=== PATIENT | female | born 1975 | race Caucasian/White ===

== ENCOUNTER 2016-10-09 20:45 | Emergency (ER) | payer OTHER ==
[2016-10-09 20:52] VITALS: BP 140/80; PULSE 68; TEMP 98.1; BMI 30.9
[2016-10-09] MEDS ORDERED: CYCLOBENZAPRINE HCL 10 MG TABLET (FP) PO ONE (21:29)
--- NOTE | 2016-10-09 22:05 | PDOC ---
History of Present Illness - General Chief Complaint: Back Pain Stated Complaint: PAIN Time Seen by Provider: 10/09/16 21:28 History Source: Patient Exam Limitations: No Limitations - History of Present Illness Initial Comments: 10/09/16 22:06 41-year-old female presents to the emergency department complaining of lower back pain 13 months. Pain is described as 6/10 dull nonradiating intermittent discomfort without nausea/vomiting, fever/chills/diarrhea, headaches, dizziness , lightheadedness, neck pains, chest pain, shortness of breath, abdominal pains , urinary symptoms: Frequency/urgency/hesitancy, burning upon urination or hematuria. Patient denies bladder or bowel dysfunction, extremity numbness or tingling sensation. Patient states she's had MRIs and numerous consultations during this 13 month but every consulting professional tells her that or her exams are within normal limits. Occurred: reports: other (13 months) Pain Location: reports: back (lower) Past History - Travel Traveled outside of the country in the last 30 days: No Close contact w/someone who was outside of country & ill: No - Past Medical History Allergies/Adverse Reactions: Allergies Allergy/AdvReac Type Severity Reaction Status Date / Time No Known Allergies Allergy Verified 10/09/16 20:52 Home Medications: Ambulatory Orders NK [No Known Home Medication] 10/09/16 - Psycho/Social/Smoking Cessation Hx Suicidal Ideation: No Smoking History: Never smoked Have you smoked in the past 12 months: No Information on smoking cessation initiated: No Hx Alcohol Use: No Drug/Substance Use Hx: No Review of Systems - Review of Systems Able to Perform ROS?: Yes Comments:: 10/09/16 22:05 CONSTITUTIONAL: Absent: fever, chills, diaphoresis, generalized weakness, malaise, loss of appetite HEENT: Absent: rhinorrhea, nasal congestion, throat pain, throat swelling, difficulty swallowing, mouth swelling, ear pain, eye pain, visual Changes CARDIOVASCULAR: Absent: chest pain, loss of consciousness, palpitations, irregular heart rate, peripheral edema RESPIRATORY: Absent: cough, shortness of breath, dyspnea with exertion, orthopnea, wheezing, stridor, hemoptysis GASTROINTESTINAL: Absent: abdominal pain, abdominal distension, nausea, vomiting, diarrhea, constipation, melena, hematochezia GENITOURINARY: Absent: dysuria, frequency, urgency, hesitancy, hematuria, flank pain, genital pain MUSCULOSKELETAL: : LBP Absent: myalgia, arthralgia, joint swelling SKIN: Absent: rash, itching, pallor HEMATOLOGIC/IMMUNOLOGIC: Absent: easy bleeding, easy bruising, lymphadenopathy, frequent infections ENDOCRINE: Absent: unexplained weight gain, unexplained weight loss, heat intolerance, cold intolerance NEUROLOGIC: Absent: headache, focal weakness or paresthesias, dizziness, unsteady gait, seizure, mental status changes, bladder or bowel incontinence PSYCHIATRIC: Absent: anxiety, depression, suicidal or homicidal ideation, hallucinations. Is the patient limited Japanese proficient: No *Physical Exam - Vital Signs Last Vital Signs Temp Pulse Resp BP Pulse Ox 98.1 F 68 18 140/80 100 10/09/16 20:48 10/09/16 20:48 10/09/16 20:48 10/09/16 20:48 10/09/16 20:48 - Physical Exam Comments: 10/09/16 22:05 GENERAL: Well developed, well nourished. Awake and alert. No acute distress. HEENT: Normocephalic, atraumatic. PERRLA, EOMI. No conjunctival pallor. Sclera are non- icteric. Moist mucous membranes. Oropharynx is clear. NECK: Supple. Full ROM. No JVD. Carotid pulses 2+ and symmetric, without bruits. No thyromegaly. No lymphadenopathy. CARDIOVASCULAR: Regular rate and rhythm. No murmurs, rubs, or gallops. Distal pulses are 2+ and symmetric. PULMONARY: No evidence of respiratory distress. Lungs clear to auscultation bilaterally. No wheezing, rales or rhonchi. ABDOMINAL: Soft. Non-tender. Non-distended. No rebound or guarding. No organomegaly. Normoactive bowel sounds. MUSCULOSKELETAL Normal range of motion at all joints. No bony deformities or tenderness. No CVA tenderness. EXTREMITIES: No cyanosis. No clubbing. No edema. No calf tenderness. SKIN: Warm and dry. Normal capillary refill. No rashes. No jaundice. NEUROLOGICAL: Alert, awake, appropriate. Cranial nerves 2-12 intact. No deficits to light touch and temperature in face, upper extremities and lower extremities. No motor deficits in the in face, upper extremities and lower extremities. Normoreflexic in the upper and lower extremities. Normal speech. Toes are down- going bilaterally. Gait is normal without ataxia. PSYCHIATRIC: Cooperative. Good eye contact. Appropriate mood and affect. Neg SLR heel/toe/tandem walk intact Deep knee bend intact Progress Note - Progress Note Progress Note: XR; lumbar/sacral spine: neg *DC/Admit/Observation/Transfer Diagnosis at time of Disposition: Chronic lower back pain Qualifiers: Back pain laterality: bilateral Sciatica presence: without sciatica Qualified Code(s): M54.5 - Low back pain - Discharge Dispostion Disposition: HOME Condition at time of disposition: Stable Admit: No - Referrals Referrals: STAFF,NOT ON [Primary Care Provider] - Aleksandr Clifton MD [Staff Physician] - - Patient Instructions Printed Discharge Instructions: Managing Chronic Low Back Pain Additional Instructions: REst Avoid heavy lifting Follow up with neurology listed on your discharge Return to the ER for severe/persistent/worsening symptoms, bladder or bowel dysfunction - Post Discharge Activity Work/School Note: Back to Work
[2016-10-09 22:15] LABS: URINE APPEARANCE CLEAR; URINE BILIRUBIN NEGATIVE (NEGATIVE); URINE BLOOD NEGATIVE (NEGATIVE); URINE COLOR LTYELLOW; URINE GLUCOSE (UA) NEGATIVE (NEGATIVE); URINE KETONE NEGATIVE (NEGATIVE); URINE LEUK ESTERASE NEGATIVE (NEGATIVE); URINE NITRITE NEGATIVE (NEGATIVE); URINE PROTEIN NEGATIVE (NEGATIVE); URINE UROBILINOGEN NEGATIVE E.U./dl (0.2-1.0)
[2016-10-09] MEDS ORDERED: CYCLOBENZAPRINE HCL 10 MG TABLET (FP) ONE (22:15)
== END 2016-10-09 22:41 | disposition home or self-care (01) ==
LOC: JERFT 20:45
DX: M54.5 Low back pain (principal)
CPT/HCPCS: 72100-TC; 81003; 84703; 99281-25

== ENCOUNTER 2017-04-16 19:30 | Emergency (ER) | payer OTHER ==
--- NOTE | 2017-04-16 20:38 | PDOC ---
Attending Attestation - Resident Resident Name: Kyle Campos - ED Attending Attestation I have performed the following: I have examined & evaluated the patient, The case was reviewed & discussed with the resident, I agree w/resident's findings & plan, Exceptions are as noted - HPI HPI: 04/16/17 23:58 41-year-old patient with no significant past medical history presents with a urine of intermittent left upper quadrant pain. She reports the pain is sharp and sometimes burning. She doesn't note any triggers for the pain and reports it 's not better or worse with food. She has been taking fiber supplements as she spells her abdomen is full but no other treatments tried. She reports that she saw her primary doctor 7 months ago for this and was referred to a medical records administrator but was unable to follow-up at the appointment. She presents today because she feels she cannot take the pain anymore. Denies any associated symptoms of nausea, vomiting, diarrhea, chest pain, shortness of breath, diaphoresis, headache, weakness or numbness. Denies vaginal discharge or bleeding. No dark or blood stools. - Physicial Exam PE: 04/17/17 00:03 GENERAL: Awake, alert, and fully oriented, in no acute distress HEAD: No signs of trauma EYES: PERRLA, EOMI, sclera anicteric, conjunctiva clear ENT: Auricles normal inspection, hearing grossly normal, nares patent, oropharynx clear without exudates. Moist mucosa NECK: Normal ROM, supple, no lymphadenopathy, JVD, or masses LUNGS: Breath sounds equal, clear to auscultation bilaterally. No wheezes, and no crackles HEART: Regular rate and rhythm, normal S1 and S2, no murmurs, rubs or gallops ABDOMEN: Soft, nontender, normoactive bowel sounds. No guarding, no rebound. No masses EXTREMITIES: Normal range of motion, no edema. No clubbing or cyanosis. No cords, erythema, or tenderness NEUROLOGICAL: Normal speech, cranial nerves intact, negative pronator drift, 5/ 5 strength in all 4 extremities, normal sensation to light touch in all 4 extremities, normal cerebellar exam, normal gait, normal reflexes and tone SKIN: Warm, Dry, normal turgor, no rashes or lesions noted. - Medical Decision Making 04/17/17 23:03 41-year-old female with no significant past medical history who presents with a urinary off of left upper quadrant pain vitals are unremarkable. Exam completely unremarkable with no tenderness to palpation in the abdomen. Likely gastritis. Will check labs including a lipase to rule out pancreatitis. -labs -UA -UPT -pain control -reassess 04/17/17 00:05 UPT negative. Labs unremarkable. Patient reports improvement in pain after GI cocktail. Likely gastritis. Will discharge patient to follow-up with primary doctor and GI doctor. I discussed the physical exam findings, ancillary test results and final diagnoses with the patient. I answered all of the patient's questions. The patient was satisfied with the care received and felt comfortable with the discharge plan and treatment plan. The patient will call their primary care physician within 24 hours to arrange follow-up and will return to the Emergency Department with any new, persistent or worsening symptoms.
[2017-04-16 20:40] VITALS: BP 133/86; PULSE 68; TEMP 98.3; BMI 29.9
[2017-04-16] MEDS ORDERED: FAMOTIDINE 20 MG/50 ML IVPB 20 MG/50 ML MG IVPB ONE (20:43)
[2017-04-16] MEDS ORDERED: SODIUM CHLORIDE 1,000 ML IV STA (20:43)
[2017-04-16] MEDS ORDERED: MAG HYDROX/AL HYDROX/SIMETH 30 ML UNIT-DOSE CUP PO ONE (20:44)
--- NOTE | 2017-04-16 21:28 | PDOC ---
History of Present Illness - General Chief Complaint: Pain Stated Complaint: STOMACH PAIN Time Seen by Provider: 04/16/17 20:27 History Source: Patient Exam Limitations: No Limitations - History of Present Illness Initial Comments: 04/16/17 21:20 Patient is a 41F with no significant medical history here today complaining of abdominal pain for the past 1.5 years. She says the pain is located in the upper left quadrant and describes the pain as a burning and stabbing sensation. She denies waxing and waning of her pain, stating that it's always there. She states that she feels like there are spiderwebs inside of her. Patient has seen her PCP for this condition, who referred her to a GI specialist last June. She missed that appointment and never followed up again. She denies associated nausea, vomiting, fevers, and chills. She denies anything that makes her pain better or worse, including movement, eating, and inspiration. She denies any trauma. She denies diarrhea, constipation, pain with urination, incontinence and frequency. Denies smoking, etoh and illicits. PCP: Juan M Past History - Past Medical History Allergies/Adverse Reactions: Allergies Allergy/AdvReac Type Severity Reaction Status Date / Time No Known Allergies Allergy Verified 04/16/17 20:38 Home Medications: Ambulatory Orders Famotidine [Pepcid] 20 mg PO BID #28 tablet 04/16/17 - Suicide/Smoking/Psychosocial Hx Smoking History: Never smoked Have you smoked in the past 12 months: No Information on smoking cessation initiated: No Hx Alcohol Use: No Drug/Substance Use Hx: No Review of Systems - Review of Systems Comments:: 04/16/17 21:28 GENERAL/CONSTITUTIONAL: No fever or chills. No weakness. HEAD, EYES, EARS, NOSE AND THROAT: No change in vision. No ear pain or discharge. No sore throat. CARDIOVASCULAR: No chest pain or shortness of breath RESPIRATORY: No cough, wheezing, or hemoptysis. GASTROINTESTINAL: No nausea, vomiting, diarrhea or constipation. GENITOURINARY: No dysuria, frequency, or change in urination. MUSCULOSKELETAL: No joint or muscle swelling or pain. No neck or back pain. SKIN: No rash NEUROLOGIC: No headache, vertigo, loss of consciousness, or change in strength/ sensation. ENDOCRINE: No increased thirst. No abnormal weight change HEMATOLOGIC/LYMPHATIC: No anemia, easy bleeding, or history of blood clots. ALLERGIC/IMMUNOLOGIC: No hives or skin allergy. *Physical Exam - Vital Signs Last Vital Signs Temp Pulse Resp BP Pulse Ox 98.3 F 68 14 133/86 100 04/16/17 20:38 04/16/17 20:38 04/16/17 20:38 04/16/17 20:38 04/16/17 20:38 - Physical Exam Comments: 04/16/17 21:29 GENERAL: Awake, alert, and fully oriented, in no acute distress HEAD: No signs of trauma, normocephalic, atraumatic EYES: PERRLA, EOMI, sclera anicteric, conjunctiva clear ENT: Auricles normal inspection, hearing grossly normal, nares patent, oropharynx clear without exudates. Moist mucosa NECK: Normal ROM, supple, no lymphadenopathy, JVD, or masses LUNGS: No distress, speaks full sentences, clear to auscultation bilaterally HEART: Regular rate and rhythm, normal S1 and S2, no murmurs, rubs or gallops, peripheral pulses normal and equal bilaterally. ABDOMEN: Soft, mildly tender in upper left quadrant, normoactive bowel sounds. No guarding, no rebound. No masses EXTREMITIES: Normal inspection, Normal range of motion, no edema. No clubbing or cyanosis. NEUROLOGICAL: Cranial nerves II through XII grossly intact. Normal speech, normal gait, no focal sensorimotor deficits SKIN: Warm, Dry, normal turgor, no rashes or lesions noted. ED Treatment Course - LABORATORY CBC & Chemistry Diagram: 04/16/17 22:00 04/16/17 22:00 Medical Decision Making - Medical Decision Making 04/16/17 21:29 Patient is a 41F with no significant medical history here today with left upper quadrant abdominal pain. Vital signs stable and normal. Patient exam reassuring. Patient is walking around the room comfortably. Differential diagnosis includes, but is not limited to: gastritis, ulcer, pancreatitis. Will evaluate with abdominal labs, upreg. Will treat with maalox, pepcid and fluid. 04/16/17 23:23 Laboratory Tests 04/16/17 04/16/17 04/16/17 22:00 22:00 22:18 WBC 7.2 Hgb 12.9 Hct 38.8 Plt Count 320 BUN 7 Creatinine 0.7 AST 14 L ALT 21 Lipase 111 Urine Blood Negative Urine Nitrite Negative Urine HCG, Qual 04/16/17 22:18 WBC Hgb Hct Plt Count BUN Creatinine AST ALT Lipase Urine Blood Urine Nitrite Urine HCG, Qual Negative CBC normal. CMP shows normal kidney and liver function. Lipase neg. Upreg neg. UA clear. Will discharge with GI and PCP follow up. Patient improved, alert, and ambulatory at discharge. *DC/Admit/Observation/Transfer Diagnosis at time of Disposition: Abdominal pain - Discharge Dispostion Disposition: HOME Condition at time of disposition: Good Admit: No - Prescriptions Prescriptions: Famotidine [Pepcid] 20 mg PO BID #28 tablet - Referrals Referrals: Rock Mcgowan MD [Primary Care Provider] - Arjun Darling MD [Staff Physician] - - Patient Instructions Printed Discharge Instructions: DI for Abdominal Pain-Adult Additional Instructions: Please follow up with your primary care physician in the next 7 days. Please call to make an appointment with the GI specialist tomorrow morning. Please return if you have any new, worsening or concerning symptoms. -Dr Campos - Post Discharge Activity
[2017-04-16] MEDS ORDERED: MAG HYDROX/AL HYDROX/SIMETH 30 ML UNIT-DOSE CUP ONE (21:38)
[2017-04-16 22:10] LABS: BASOPHIL 0.7 % (0-2.0); EOSINOPHIL 1.5 % (0-4.5); MCH 29.5 pg (25.7-33.7); MCHC 33.3 g/dl (32.0-36.0); MEAN CELL VOLUME 88.6 fl (80-96); MEAN PLT VOLUME 7.7 fl (7.5-11.1); NEUTROPHILS 65.2 % (42.8-82.8); PLATELET COUNT 320 K/MM3 (134-434); RDW 13.8 % (11.6-15.6); WHITE BLOOD COUNT 7.2 K/mm3 (4.0-10.0)
[2017-04-16 22:34] LABS: URINE APPEARANCE SLCLOUDY; URINE BILIRUBIN NEGATIVE (NEGATIVE); URINE BLOOD NEGATIVE (NEGATIVE); URINE COLOR YELLOW; URINE GLUCOSE (UA) NEGATIVE (NEGATIVE); URINE KETONE NEGATIVE (NEGATIVE); URINE NITRITE NEGATIVE (NEGATIVE); URINE PROTEIN NEGATIVE (NEGATIVE); URINE UROBILINOGEN NEGATIVE mg/dL (0.2-1.0)
[2017-04-16 22:40] LABS: ALBUMIN 3.8 g/dl (3.4-5.0); ANION GAP 7 (8-16); BILIRUBIN,TOTAL 0.3 mg/dL (0.2-1.0); CALCIUM 8.8 mg/dL (8.5-10.1); CO2 29 mmol/L (21-32); CREATININE 0.7 mg/dL (0.55-1.02); GLUCOSE,RANDOM 84 mg/dL (74-106); SGOT/AST 14 U/L (15-37); SGPT/ALT 21 U/L (12-78); TOT PROT 7.2 g/dl (6.4-8.2)
[2017-04-16 22:41] LABS: ALK PHOS 62 U/L (45-117)
[2017-04-17 17:46] LABS: URINE LEUK ESTERASE Negative (NEGATIVE)
== END 2017-04-17 01:14 | disposition home or self-care (01) ==
LOC: JER 19:30
PROC: 3E033GC Introduction of Other Therapeutic Substance into Peripheral Vein, Percutaneous Approach (ICD-10-PCS; principal; 2017-04-16)
DX: R10.84 Generalized abdominal pain (principal)
CPT/HCPCS: 36415; 80053; 81003; 83690; 84703; 85025; 99281-25

== ENCOUNTER 2017-04-30 08:11 | Day surgery (SDC) | payer OTHER ==
[2017-04-30] MEDS ORDERED: LIDOCAINE HCL/PF 2% SDV 5ML VIAL ONE (08:50)
[2017-04-30] MEDS ORDERED: PROPOFOL 20 ML ONE ×2 (08:50)
[2017-04-30 08:55] VITALS: BMI 31.2
[2017-04-30 10:10] VITALS: TEMP 98.4
[2017-04-30 10:31] VITALS: PULSE 60
--- NOTE | 2017-04-30 12:31 | PROC ---
Endoscopy Procedure Endoscopy procedure completed. Please see scanned procedure report.
[2017-04-30 14:56] VITALS: BP 112/69
--- NOTE | 2017-05-01 11:46 | PATH ---
Surgical Pathology Report Patient Name: ROBIN ESPARZA [facility] Rec. #: [id number] /Age/Gender: 1975 (Age: 41) / F Account: [id number] Location: [facility]-ENDOSCOPY Taken: 04/30/2017 Received: 04/30/2017 Reported: 05/01/2017 Physicians: Arjun Darling M.D. Specimen(s) Received A: BX SECOND PORTION DUODENUM B: BX ANTRUM/BODY C: BX GASTRO-ESOPHAGEAL JUNCTION D: BX TERMINAL ILEUM E: ASCENDING COLON POLYP F: BX DESCENDING COLON Clinical History Preoperative diagnosis: Abdominal pain Postoperative diagnosis: Same Final Diagnosis A. DUODENUM, SECOND PORTION, BIOPSY: DUODENAL MUCOSA WITH NO PATHOLOGIC CHANGES. NO HISTOLOGIC EVIDENCE OF GLUTEN SENSITIVE ENTEROPATHY (CELIAC SPRUE) IDENTIFIED. B. STOMACH, ANTRUM AND BODY, BIOPSY: SEVERE CHRONIC ACTIVE GASTRITIS. IMMUNOSTAIN FOR H. PYLORI IS POSITIVE (MANY ORGANISMS). C. GE JUNCTION, BIOPSY: SQUAMOUS AND GASTRIC MUCOSA WITH ACUTE AND CHRONIC INFLAMMATION, WITH PAPILLOMATOSIS AND INTRAEPITHELIAL EOSINOPHILS CONSISTENT WITH REFLUX ESOPHAGITIS. NO INTESTINAL METAPLASIA IDENTIFIED (NO GEORGE'S IDENTIFIED). D. TERMINAL ILEUM, BIOPSY: SMALL INTESTINAL MUCOSA WITH REACTIVE FOLLICULAR HYPERPLASIA OF MUCOSA ASSOCIATED LYMPHOID TISSUE. NO ACTIVE INFLAMMATION, GRANULOMATA, OR DYSPLASIA IDENTIFIED. E. COLON, ASCENDING, BIOPSY: COLONIC MUCOSA WITH NO PATHOLOGIC CHANGES. NO ACTIVE COLITIS, ARCHITECTURAL DISTORTION, GRANULOMATA, OR DYSPLASIA IDENTIFIED. NO MICROSCOPIC COLITIS IDENTIFIED (NO LYMPHOCYTIC OR COLLAGENOUS COLITIS IDENTIFIED). F. COLON, DESCENDING, BIOPSY: COLONIC MUCOSA WITH NO PATHOLOGIC CHANGES. NO ACTIVE COLITIS, ARCHITECTURAL DISTORTION, GRANULOMATA, OR DYSPLASIA IDENTIFIED. NO MICROSCOPIC COLITIS IDENTIFIED (NO LYMPHOCYTIC OR COLLAGENOUS COLITIS IDENTIFIED). Comment: The findings in Specimen F may indicate some form of antigenic stimulation to the GI tract. Electronically Signed Edgar Santos M.D. Gross Description A. Received in formalin, labeled "biopsy second portion of duodenum" is a jones, irregular portion of soft tissue measuring 0.4 cm. in greatest dimension. The specimen is submitted in toto in one cassette. B. Received in formalin, labeled "biopsy antrum/body" are 3 jones, irregular portions of soft tissue ranging from 0.2-0.6 cm. in greatest dimension. The specimens are submitted in toto in one cassette. C. Received in formalin, labeled "biopsy gastroesophageal junction" are 3 jones, irregular portions of soft tissue averaging 0.2 cm. in greatest dimension. The specimens are submitted in toto in one cassette. D. Received in formalin, labeled "biopsy terminal ileum" are 2 jones, irregular portions of soft tissue averaging 0.3 cm. in greatest dimension. The specimens are submitted in toto in one cassette. E. Received in formalin, labeled "biopsy ascending colon" is a jones, irregular portion of soft tissue measuring 0.6 cm. in greatest dimension. The specimen is submitted in toto in one cassette. F. Received in formalin, labeled "biopsy descending colon" are 2 jones, irregular portions of soft tissue averaging 0.2 cm. in greatest dimension. The specimens are submitted in toto in one cassette. 04/30/2017 [facility]30/2017
== END 2017-04-30 12:00 | disposition home or self-care (01) ==
LOC: JASU-ENDO 08:11
PROVIDERS: ATTEND Internal Medicine Gastroenterology
PROC: 0DB68ZX Excision of Stomach, Via Natural or Artificial Opening Endoscopic, Diagnostic (ICD-10-PCS; 2017-04-30)
PROC: 0DB48ZX Excision of Esophagogastric Junction, Via Natural or Artificial Opening Endoscopic, Diagnostic (ICD-10-PCS; 2017-04-30)
PROC: 0DB98ZX Excision of Duodenum, Via Natural or Artificial Opening Endoscopic, Diagnostic (ICD-10-PCS; principal; 2017-04-30 09:00)
DX: B96.81 Helicobacter pylori [H. pylori] as the cause of diseases classified elsewhere (principal); K20.9 Esophagitis, unspecified; K29.50 Unspecified chronic gastritis without bleeding
CPT/HCPCS: 84703; 88305-TC; 88342-TC

== ENCOUNTER 2018-08-03 19:24 | Emergency (ER) | payer OTHER ==
[2018-08-03 19:41] VITALS: BP 116/74; PULSE 77; TEMP 98.1; BMI 31.7
[2018-08-03] MEDS ORDERED: ONDANSETRON *ODT* 4 MG TABLET SL ONE (19:41)
[2018-08-03] MEDS ORDERED: ONDANSETRON *ODT* 4 MG TABLET ONE (19:44)
--- NOTE | 2018-08-03 19:44 | PDOC ---
Rapid Medical Evaluation Chief Complaint: Vomiting/Diarrhea Time Seen by Provider: 08/03/18 19:40 Medical Evaluation: Allergies Allergy/AdvReac Type Severity Reaction Status Date / Time No Known Allergies Allergy Verified 08/03/18 19:41 Vital Signs Temp Pulse Resp BP Pulse Ox 98.1 F 77 17 116/74 99 08/03/18 19:39 08/03/18 19:39 08/03/18 19:39 08/03/18 19:39 08/03/18 19:39 08/03/18 19:42 I have performed a brief in-person evaluation of this patient. The patient presents with a chief complaint of: no med Hx present with diarrhea and vomiting since yesterday. report unable to keep any food down. Denies fever , chills or recent travel Pertinent physical exam findings: A&O x 3. heart RRR I have ordered the following: cbc, cmp, uhcg The patient will proceed to the ED for further evaluation Discharge Disposition - Diagnosis Gastroenteritis - Discharge Dispostion Condition at time of disposition: Stable - Referrals - Patient Instructions - Post Discharge Activity
[2018-08-03 20:00] LABS: BASO % 0.6 % (0-2.0); EOS % 0.6 % (0-4.5); HEMATOCRIT 40.1 % (32.4-45.2); HEMOGLOBIN 13.6 GM/dL (10.7-15.3); LYMPH % 22.4 % (8-40); MCH 30.4 pg (25.7-33.7); MCHC 33.9 g/dl (32.0-36.0); MEAN CELL VOLUME 89.5 fl (80-96); MEAN PLT VOLUME 7.5 fl (7.5-11.1); MONO % 5.5 % (3.8-10.2); NEUT % 70.9 % (42.8-82.8); PLATELET COUNT 301 K/MM3 (134-434); RBC 4.48 M/mm3 (3.60-5.2); RDW 14.1 % (11.6-15.6); WHITE BLOOD COUNT 6.2 K/mm3 (4.0-10.0)
[2018-08-03 20:35] LABS: ALBUMIN 4.1 g/dl (3.4-5.0); ALK PHOS 72 U/L (45-117); ANION GAP 7 MMOL/L (8-16); BILIRUBIN,TOTAL 0.4 mg/dL (0.2-1); BLOOD UREA NITROGEN 10 mg/dL (7-18); CALCIUM 9.5 mg/dL (8.5-10.1); CHLORIDE 103 mmol/L (98-107); CO2 28 mmol/L (21-32); CREATININE 0.9 mg/dL (0.55-1.3); GLUCOSE,RANDOM 70 mg/dL (74-106); POTASSIUM 4.1 mmol/L (3.5-5.1); SGOT/AST 20 U/L (15-37); SGPT/ALT 20 U/L (13-61); SODIUM 137 mmol/L (136-145); TOT PROT 7.7 g/dl (6.4-8.2)
--- NOTE | 2018-08-03 20:59 | PDOC ---
*Physical Exam - Vital Signs Last Vital Signs Temp Pulse Resp BP Pulse Ox 98.1 F 77 17 116/74 99 08/03/18 19:39 08/03/18 19:39 08/03/18 19:39 08/03/18 19:39 08/03/18 19:39 ED Treatment Course - LABORATORY CBC & Chemistry Diagram: 08/03/18 19:49 08/03/18 19:49 - ADDITIONAL ORDERS Additional order review: Laboratory Results 08/03/18 08/03/18 19:49 19:49 Sodium 137 Potassium 4.1 Chloride 103 Carbon Dioxide 28 Anion Gap 7 L BUN 10 Creatinine 0.9 Creat Clearance w eGFR > 60 Random Glucose 70 L Calcium 9.5 Total Bilirubin 0.4 AST 20 ALT 20 Alkaline Phosphatase 72 Total Protein 7.7 Albumin 4.1 Urine HCG, Qual Negative 08/03/18 19:49 RBC 4.48 MCV 89.5 MCHC 33.9 RDW 14.1 MPV 7.5 Neutrophils % 70.9 D Lymphocytes % 22.4 D Monocytes % 5.5 Eosinophils % 0.6 Basophils % 0.6 - Medications Given in the ED: ED Medications Discontinued Medications Generic Name Dose Route Start Last Admin Trade Name Freq PRN Reason Stop Dose Admin Ondansetron HCl 4 mg 08/03/18 19:41 08/03/18 19:46 Zofran Odt - SL 08/03/18 19:42 4 mg ONCE ONE Administration Medical Decision Making - Medical Decision Making 08/03/18 20:59 Patient seen by the advanced practice provider under my direct supervision. Ancillary testing reviewed as necessary. I agree with plan as outlined by the advanced practice provider. *DC/Admit/Observation/Transfer Diagnosis at time of Disposition: Gastroenteritis - Discharge Dispostion Condition at time of disposition: Stable - Referrals Referrals: Rock Mcgowan MD [Primary Care Provider] - - Patient Instructions - Post Discharge Activity
--- NOTE | 2018-08-03 22:08 | PDOC ---
History of Present Illness - General Chief Complaint: Vomiting/Diarrhea Stated Complaint: FEVER, DIARRHEA Time Seen by Provider: 08/03/18 19:40 History Source: Patient Exam Limitations: No Limitations Past History - Past Medical History Allergies/Adverse Reactions: Allergies Allergy/AdvReac Type Severity Reaction Status Date / Time No Known Allergies Allergy Verified 08/03/18 19:41 Home Medications: Ambulatory Orders Ascorbic Acid [Vitamin C] 1,000 mg PO DAILY 08/03/18 Anemia: No Asthma: No Cancer: No Cardiac Disorders: No CVA: No COPD: No CHF: No Dementia: No Diabetes: No GI Disorders: No Disorders: No HTN: No Hypercholesterolemia: No Liver Disease: No Seizures: No Thyroid Disease: No - Surgical History Abdominal Surgery: No Appendectomy: No Cardiac Surgery: No Cholecystectomy: No Lung Surgery: No Neurologic Surgery: No Orthopedic Surgery: No - Suicide/Smoking/Psychosocial Hx Smoking History: Never smoked Have you smoked in the past 12 months: No Information on smoking cessation initiated: No Hx Alcohol Use: No Drug/Substance Use Hx: No Substance Use Type: None Hx Substance Use Treatment: No *Physical Exam - Vital Signs Last Vital Signs Temp Pulse Resp BP Pulse Ox 98.1 F 77 17 116/74 99 08/03/18 19:39 08/03/18 19:39 08/03/18 19:39 08/03/18 19:39 08/03/18 21:09 - Physical Exam General Appearance: No: Apparent Distress Respiratory/Chest: positive: Lungs Clear, Normal Breath Sounds. negative: Respiratory Distress Cardiovascular: positive: Regular Rhythm, Regular Rate, S1, S2. negative: Murmur Gastrointestinal/Abdominal: positive: Normal Bowel Sounds, Soft. negative: Tender, Distended, Guarding, Rebound Integumentary: positive: Normal Color Neurologic: positive: Fully Oriented, Alert, Normal Mood/Affect Moderate Sedation - Procedure Monitoring Vital Signs: Procedure Monitoring Vital Signs Temperature 98.1 F 08/03/18 19:39 Pulse Rate 77 08/03/18 19:39 Respiratory Rate 17 08/03/18 19:39 Blood Pressure 116/74 08/03/18 19:39 O2 Sat by Pulse Oximetry (%) 99 08/03/18 21:09 ED Treatment Course - LABORATORY CBC & Chemistry Diagram: 08/03/18 19:49 08/03/18 19:49 - ADDITIONAL ORDERS Additional order review: Laboratory Results 08/03/18 08/03/18 19:49 19:49 Sodium 137 Potassium 4.1 Chloride 103 Carbon Dioxide 28 Anion Gap 7 L BUN 10 Creatinine 0.9 Creat Clearance w eGFR > 60 Random Glucose 70 L Calcium 9.5 Total Bilirubin 0.4 AST 20 ALT 20 Alkaline Phosphatase 72 Total Protein 7.7 Albumin 4.1 Urine HCG, Qual Negative 08/03/18 19:49 RBC 4.48 MCV 89.5 MCHC 33.9 RDW 14.1 MPV 7.5 Neutrophils % 70.9 D Lymphocytes % 22.4 D Monocytes % 5.5 Eosinophils % 0.6 Basophils % 0.6 - Medications Given in the ED: ED Medications Discontinued Medications Generic Name Dose Route Start Last Admin Trade Name Freq PRN Reason Stop Dose Admin Ondansetron HCl 4 mg 08/03/18 19:41 08/03/18 19:46 Zofran Odt - SL 08/03/18 19:42 4 mg ONCE ONE Administration Medical Decision Making - Medical Decision Making 42 y/o F with no sig pmh presents with watery diarrhea since yesterday along with gassy, cramping epigastric abdominal pain and subjective fever today. Mentions her aunt also had diarrhea. Denies sob, cp, n/v, urinary complaints, recent travel, recent use of antibiotics. Mentions only had 1 episode of diarrhea today. Denies taking any antipyretics today. PE unremarkable, patient afebrile Likely viral illness Labs reviewed and unremarkable Stable for dc 08/03/18 22:04 *DC/Admit/Observation/Transfer Diagnosis at time of Disposition: Gastroenteritis - Discharge Dispostion Disposition: HOME Condition at time of disposition: Stable Decision to Admit order: No - Referrals Referrals: Rock Mcgowan MD [Primary Care Provider] - 2 Days - Patient Instructions Printed Discharge Instructions: DI for Viral Gastroenteritis -- Adult Additional Instructions: Thank you for choosing [facility]. It was a pleasure taking care of you. Likely you have viral infection which will resolve in few days Be sure to drink at least 2L of water daily and get your electrolytes as well Follow-up with your PCP in 2-3 days Return to the Emergency Department if your symptoms worsen or persist, you have fever, shortness of breath, chest pain, severe abdominal pain, vomiting, bloody stools or other concerning symptoms. - Post Discharge Activity Forms/Work/School Notes: Back to Work
== END 2018-08-03 22:29 | disposition home or self-care (01) ==
LOC: JER 19:24
DX: K52.9 Noninfective gastroenteritis and colitis, unspecified (principal)
CPT/HCPCS: 36415; 80053; 84703; 85025; 99284-25; Q0162

== ENCOUNTER 2019-01-04 20:04 | Emergency (ER) | payer OTHER ==
[2019-01-04 20:19] VITALS: BP 116/71; PULSE 73; TEMP 97.8; BMI 30.9
--- NOTE | 2019-01-04 20:20 | PDOC ---
Rapid Medical Evaluation Chief Complaint: Allergic Reaction Time Seen by Provider: 01/04/19 20:13 Medical Evaluation: Allergies Allergy/AdvReac Type Severity Reaction Status Date / Time No Known Allergies Allergy Verified 08/03/18 19:41 01/04/19 20:16 I have performed a brief in-person evaluation of this patient. The patient presents with a chief complaint of: total body itching/ eruption of wheals/rash all over body - denies lip or tongue swelling/ no breathing problems . Took Benadryl tonight ~ 4PM Pertinent physical exam findings: maculo pap rash covering back/ arms/ legs lungs clear I have ordered the following: nothing The patient will proceed to the ED for further evaluation. Discharge Disposition - Diagnosis Hives - Referrals - Patient Instructions - Post Discharge Activity
[2019-01-04] MEDS ORDERED: RANITIDINE HCL 150 MG TABLET (FP) PO ONE (21:01)
[2019-01-04] MEDS ORDERED: DEXAMETHASONE 4 MG TABLET (FP) PO ONE (21:01)
--- NOTE | 2019-01-04 21:02 | PDOC ---
History of Present Illness - General Chief Complaint: Allergic Reaction Stated Complaint: RASH Time Seen by Provider: 01/04/19 20:13 - History of Present Illness Initial Comments: 01/04/19 20:57 CHIEF COMPLAINT: sammie HISTORY OF PRESENT ILLNESS: 43 yo F with no significant PMH presents to [facility] with rash. PAtient states she developed a rash yesterday and has been taking Benadryl with minimal relief. SHe denies any use of new detergents, perfumes, lotions, or any new foods or medications in the past week. PAtient states she has had an allergy test done previously and that she is allergic "to the change of season from summer to fall because of the pollen." She admits to having sat under a tree in the park two days ago prior to the rash developing. Denies any difficulty breathing, SOB, swelling to throat, tongue, lips mouth, neck. No recent travel or sick contacts. PAST MEDICAL HISTORY: Denies past medical history FAMILY HISTORY: Denies SOCIAL HISTORY: Denies tobacco, alcohol, illicit drug use. SURGICAL HISTORY: Denies ALLERGIES: No known drug allergies REVIEW OF SYSTEMS General/Constitutional: Denies fever or chills. Denies weakness, weight change. HEENT: Denies change in vision. Denies ear pain or discharge. Denies sore throat. Cardiovascular: Denies chest pain or shortness of breath. Respiratory: Denies cough, wheezing, or hemoptysis. Gastrointestinal: Denies nausea, vomiting, diarrhea or constipation. Denies rectal bleeding. Genitourinary: Denies dysuria, frequency, or change in urination. Musculoskeletal: Denies joint or muscle swelling or pain. Denies neck or back pain. Skin: rash Neurologic: Denies headache, vertigo, loss of consciousness, or loss of sensation. PHYSICAL EXAM General Appearance: Well-appearing, appropriately dressed. No apparent distress , no intoxication. HEENT: EOMI, PERRLA, normal ENT inspection, normal voice, TMs normal, pharynx normal. No conjunctival pallor. No photophobia, scleral icterus. Neck: Supple. Trachea midline. No tenderness, rigidity, carotid bruit, stridor , lymphadenopathy, or thyromegaly. Respiratory/Chest: Lungs CTAB. No shortness of breath, chest tenderness, respiratory distress, accessory muscle use. No crackles, rales, rhonchi, stridor , wheezing, dullness Cardiovascular: RRR. S1, S2. No JVD, murmur, bradycardia, tachycardia. Vascular Pulses: Dorsalis-Pedis (R): 2+, Dorsalis-Pedis (L): 2+ Gastrointestinal/Abdominal: Normal bowel sounds. Abdomen soft, non-distended. No tenderness or rebound tenderness. No organomegaly, pulsatile mass, guarding , hernia, hepatomegaly, splenomegaly. Lymphatic: No adenopathy, tenderness. Musculoskeletal/Extremities: Normal inspection. FROM of all extremities, normal capillary refill. Pelvis Stable. No CVA tenderness. No tenderness to extremities, pedal edema, swelling, erythema or deformity. Integumentary: Generalized erythematous macular rash. 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 Fully oriented, alert. Appropriate mood/affect. Motor strength 5/5. No appreciable EOM palsy, facial droop or sensory deficit. Past History - Past Medical History Allergies/Adverse Reactions: Allergies Allergy/AdvReac Type Severity Reaction Status Date / Time No Known Allergies Allergy Verified 01/04/19 20:20 Home Medications: Ambulatory Orders Ascorbic Acid [Vitamin C] 1,000 mg PO DAILY 08/03/18 EPINEPHrine (EPI-PEN 0.3MG) [Epipen 0.3MG -] 0.3 mg IM ASDIR #2 pens 01/04/19 Anemia: No Asthma: No Cancer: No Cardiac Disorders: No CVA: No COPD: No CHF: No Dementia: No Diabetes: No GI Disorders: No Disorders: No HTN: No Hypercholesterolemia: No Liver Disease: No Seizures: No Thyroid Disease: No - Surgical History Abdominal Surgery: No Appendectomy: No Cardiac Surgery: No Cholecystectomy: No Lung Surgery: No Neurologic Surgery: No Orthopedic Surgery: No - Suicide/Smoking/Psychosocial Hx Smoking History: Unknown if ever smoked Have you smoked in the past 12 months: No Information on smoking cessation initiated: No Hx Alcohol Use: No Drug/Substance Use Hx: No Substance Use Type: None Hx Substance Use Treatment: No *Physical Exam - Vital Signs Last Vital Signs Temp Pulse Resp BP Pulse Ox 97.8 F 73 16 116/71 100 01/04/19 20:17 01/04/19 20:17 01/04/19 20:17 01/04/19 20:17 01/04/19 20:17 Medical Decision Making - Medical Decision Making 01/04/19 21:00 43 yo F with no significant PMH presents to [facility] with rash. -decadron -hydroxyzine *DC/Admit/Observation/Transfer Diagnosis at time of Disposition: Hives - Discharge Dispostion Disposition: HOME Condition at time of disposition: Stable Decision to Admit order: No - Prescriptions Prescriptions: EPINEPHrine (EPI-PEN 0.3MG) [Epipen 0.3MG -] 0.3 mg IM ASDIR #2 pens - Referrals Referrals: Rock Mcgowan MD [Primary Care Provider] - - Patient Instructions Printed Discharge Instructions: DI for Hives - Post Discharge Activity
[2019-01-04] MEDS ORDERED: DEXAMETHASONE 4 MG TABLET (FP) ONE (21:07)
[2019-01-04] MEDS ORDERED: RANITIDINE HCL 150 MG TABLET (FP) ONE (21:07)
== END 2019-01-04 21:11 | disposition home or self-care (01) ==
LOC: JERFT 20:04
DX: L50.0 Allergic urticaria (principal)
CPT/HCPCS: 99282-25

== ENCOUNTER 2019-05-18 17:50 | Emergency (ER) | payer OTHER ==
--- NOTE | 2019-05-18 18:21 | PDOC ---
Rapid Medical Evaluation Time Seen by Provider: 05/18/19 18:16 Medical Evaluation: Allergies Allergy/AdvReac Type Severity Reaction Status Date / Time No Known Allergies Allergy Verified 01/04/19 20:20 05/18/19 18:17 I have performed a brief in-person evaluation of this patient. The patient presents with a chief complaint of: L face/arm tingling this afternoon. H/o chronic SERRANO and reports usual SERRANO now w/ nausea and dizziness which is unusual with her headaches per pt. Reports that she thinks sxs may be due to anxiety as has been under stress per pt Pertinent physical exam findings:stable and well omayra w/ no focal deficits I have ordered the following:upreg The patient will proceed to the ED for further evaluation. Discharge Disposition - Diagnosis Headache Qualifiers: Headache type: unspecified Headache chronicity pattern: unspecified pattern Intractability: not intractable Qualified Code(s): R51 - Headache - Referrals - Patient Instructions - Post Discharge Activity
[2019-05-18 18:24] VITALS: BMI 31.6
[2019-05-18] MEDS ORDERED: SODIUM CHLORIDE 1,000 ML IV STA (18:54)
[2019-05-18] MEDS ORDERED: METOCLOPRAMIDE HCL INJECTION 10 MG/2 ML VIAL IVPB ONE (18:54)
[2019-05-18] MEDS ORDERED: ACETAMINOPHEN 1000 MG/100 ML VIAL (NON FORMULARY) IVPB ONE (18:54)
[2019-05-18] MEDS ORDERED: ACETAMINOPHEN INJECTION 100 ML IVPB ONE (19:37)
[2019-05-18] MEDS ORDERED: METOCLOPRAMIDE HCL INJECTION 10 MG/2 ML VIAL ONE (19:37)
[2019-05-18 19:46] LABS: BASO % 0.6 % (0-2.0); EOS % 1.3 % (0-4.5); HEMATOCRIT 40.5 % (32.4-45.2); HEMOGLOBIN 13.6 GM/dL (10.7-15.3); LYMPH % 23.9 % (8-40); MCH 30.1 pg (25.7-33.7); MCHC 33.5 g/dl (32.0-36.0); MEAN CELL VOLUME 89.9 fl (80-96); NEUT % 70.2 % (42.8-82.8); PLATELET COUNT 369 K/MM3 (134-434); RBC 4.51 M/mm3 (3.60-5.2); RDW 14.2 % (11.6-15.6); WHITE BLOOD COUNT 6.6 K/mm3 (4.0-10.0)
--- NOTE | 2019-05-18 20:00 | PDOC ---
*Physical Exam - Vital Signs Last Vital Signs Temp Pulse Resp BP Pulse Ox 98.5 F 54 L 17 126/75 99 05/18/19 18:18 05/18/19 18:18 05/18/19 18:18 05/18/19 18:18 05/18/19 18:18 ED Treatment Course - LABORATORY CBC & Chemistry Diagram: 05/18/19 19:30 05/18/19 19:30 - ADDITIONAL ORDERS Additional order review: Laboratory Results 05/18/19 18:33 Urine HCG, Qual Negative 05/18/19 19:30 RBC 4.51 MCV 89.9 MCHC 33.5 RDW 14.2 MPV 8.0 Neutrophils % 70.2 Lymphocytes % 23.9 Monocytes % 4.0 Eosinophils % 1.3 D Basophils % 0.6 Medical Decision Making - Medical Decision Making 05/18/19 20:00 Patient seen by the advanced practice provider under my direct supervision. Ancillary testing reviewed as necessary. I agree with plan as outlined by the advanced practice provider. Discharge - Discharge Information Problems reviewed: Yes Clinical Impression/Diagnosis: Headache Qualifiers: Headache type: unspecified Headache chronicity pattern: unspecified pattern Intractability: not intractable Qualified Code(s): R51 - Headache - Follow up/Referral Referrals: ON STAFF,NOT [Primary Care Provider] - - Patient Discharge Instructions - Post Discharge Activity
[2019-05-18 20:11] LABS: BLOOD UREA NITROGEN 11.1 mg/dL (7-18); CALCIUM 9.4 mg/dL (8.5-10.1); CREATININE 0.9 mg/dL (0.55-1.3); POTASSIUM 4.3 mmol/L (3.5-5.1)
--- NOTE | 2019-05-18 21:09 | PDOC ---
History of Present Illness - General Chief Complaint: Headache Stated Complaint: HEADACHE & LT SIDE PAIN Time Seen by Provider: 05/18/19 18:16 History Source: Patient Exam Limitations: No Limitations Past History - Past Medical History Allergies/Adverse Reactions: Allergies Allergy/AdvReac Type Severity Reaction Status Date / Time No Known Allergies Allergy Verified 05/18/19 18:18 Home Medications: Ambulatory Orders Ascorbic Acid [Vitamin C] 1,000 mg PO DAILY 08/03/18 EPINEPHrine (EPI-PEN 0.3MG) [Epipen 0.3MG -] 0.3 mg IM ASDIR #2 pens 01/04/19 Anemia: No Asthma: No Cancer: No Cardiac Disorders: No CVA: No COPD: No CHF: No Dementia: No Diabetes: No GI Disorders: No Disorders: No HTN: No Hypercholesterolemia: No Liver Disease: No Seizures: No Thyroid Disease: No - Surgical History Abdominal Surgery: No Appendectomy: No Cardiac Surgery: No Cholecystectomy: No Lung Surgery: No Neurologic Surgery: No Orthopedic Surgery: No - Immunization History Immunization Up to Date: Yes - Psycho Social/Smoking Cessation Hx Smoking History: Never smoked Have you smoked in the past 12 months: No Information on smoking cessation initiated: No Hx Alcohol Use: No Drug/Substance Use Hx: No Substance Use Type: None Hx Substance Use Treatment: No *Physical Exam - Vital Signs Last Vital Signs Temp Pulse Resp BP Pulse Ox 98.5 F 54 L 17 126/75 99 05/18/19 18:18 05/18/19 18:18 05/18/19 18:18 05/18/19 18:18 05/18/19 18:18 - Physical Exam General Appearance: No: Apparent Distress HEENT: positive: EOMI, JAMES Respiratory/Chest: positive: Lungs Clear, Normal Breath Sounds. negative: Respiratory Distress Cardiovascular: positive: Regular Rhythm, Regular Rate, S1, S2. negative: Murmur Gastrointestinal/Abdominal: positive: Normal Bowel Sounds, Soft. 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 intact, Fully Oriented, Alert, Normal Mood/ Affect, Motor Strength 5/5, Other (normal gait) Heart Score/ECG Review - History History: Slightly suspicious - Electrocardiogram EKG: Normal - Age Age: </= 45 - Risk Factors Based on the list above the patient has:: No risk factors known - Troponin Troponin: </= normal limit - Score Heart Score - Total: 0 ED Treatment Course - LABORATORY CBC & Chemistry Diagram: 05/18/19 19:30 05/18/19 19:30 - ADDITIONAL ORDERS Additional order review: Laboratory Results 05/18/19 05/18/19 12 19:30 19:30 18:33 Sodium 138 Potassium 4.3 Chloride 105 Carbon Dioxide 28 Anion Gap 6 L BUN 11.1 Creatinine 0.9 Est GFR (CKD-EPI)AfAm 89.50 Est GFR (CKD-EPI)NonAf 77.22 Random Glucose 99 Calcium 9.4 Troponin I < 0.02 Urine HCG, Qual Negative 05/18/19 19:30 RBC 4.51 MCV 89.9 MCHC 33.5 RDW 14.2 MPV 8.0 Neutrophils % 70.2 Lymphocytes % 23.9 Monocytes % 4.0 Eosinophils % 1.3 D Basophils % 0.6 - RADIOLOGY Radiology Studies Ordered: Category Date Time Status CHEST PA & LAT [RAD] Stat Radiology 05/18/19 18:54 Completed - Medications Given in the ED: ED Medications Discontinued Medications Generic Name Dose Route Start Last Admin Trade Name Freq PRN Reason Stop Dose Admin Acetaminophen 1,000 mg 05/18/19 18:54 05/18/19 20:00 Ofirmev Injection - IVPB 05/18/19 18:55 1,000 mg ONCE ONE Administration Sodium Chloride 1,000 mls @ 1,000 mls/hr 05/18/19 18:54 05/18/19 20:00 Normal Saline - IV 05/18/19 19:53 1,000 mls/hr ASDIR STA Administration Metoclopramide HCl 10 mg 05/18/19 18:54 05/18/19 20:00 Reglan Injection - IVPB 05/18/19 18:55 10 mg ONCE ONE Administration Medical Decision Making - Medical Decision Making 43 y/o F hx of panic attacks presents with L arm tingling which started at 4 PM and L facial tingling at 5:40 PM. Also mentions while driving here today, she had a brief sec of CP, mild SOB and lightheaded, which has since resolved. Patient suffers from headaches since 2017; believes they are tension headaches because they usually come with stress and is currently stressed out as well. Usually, Tylenol relieves her headaches. Last took Tylenol at 12 PM (1000 mg). Has not been evaluated by anyone re: her headaches. Currently also has SERRANO. Denies fever, URI sxs, visual/gait changes, weakness of extremities, abd pain, vomiting. Denies smoking or drug use. Denies FH of CAD or TX or CVA. EKG: NSR at 61 bpm, no ST-T changes CXR negative CTH negative Patient feeling better after getting IVF, Tylenol and Reglan No longer has SERRANO or any tingling No focal deficits on exam D/W neuro, Dr. Lieberman, to see whether this warrants a TIA workup; states likely this is complex migraine and patient can be worked up as outpatient Patient stable for DC 05/18/19 21:12 Discharge - Discharge Information Problems reviewed: Yes Clinical Impression/Diagnosis: Headache Qualifiers: Headache type: unspecified Headache chronicity pattern: unspecified pattern Intractability: not intractable Qualified Code(s): R51 - Headache Condition: Stable Disposition: HOME - Admission No - Follow up/Referral Referrals: ON STAFF,NOT [Primary Care Provider] - David Lieberman MD [Staff Physician] - Call tomorrow - Patient Discharge Instructions Patient Printed Discharge Instructions: DI for Headache Additional Instructions: Thank you for choosing [facility]. It was a pleasure taking care of you. You were referred to neurologist regarding your headaches. Return to the Emergency Department if your symptoms worsen or persist, you have fever, vomiting, weakness of extremities (arms and/or legs), changes in vision or walking or other concerning symptoms. - Post Discharge Activity
[2019-05-18 21:44] VITALS: BP 99/62; PULSE 72; TEMP 97.4
--- NOTE | 2019-05-19 11:56 | EKG ---
Test Reason : Blood Pressure : / mmHG Vent. Rate : 061 BPM Atrial Rate : 061 BPM P-R Int : 142 ms QRS Dur : 072 ms QT Int : 408 ms P-R-T Axes : 058 053 045 degrees QTc Int : 410 ms NORMAL SINUS RHYTHM POSSIBLE LEFT ATRIAL ENLARGEMENT BORDERLINE ECG NO PREVIOUS ECGS AVAILABLE Confirmed by PATRICIA HARE, PHILLIP ([id number]) on 05/19/2019 11:55:32 AM Referred By: Confirmed By:PHILLIP GOMEZ MD
== END 2019-05-18 21:40 | disposition home or self-care (01) ==
LOC: JER 17:50
DX: R51 Headache (principal)
CPT/HCPCS: 36415; 70450-TC; 71046-TC-FY; 80048; 84484; 84703; 85025; 93005; 93010; 99283-25; J0131; J7030

== ENCOUNTER 2020-02-28 20:07 | Emergency (ER) | payer OTHER ==
--- NOTE | 2020-02-28 20:15 | PDOC ---
Rapid Medical Evaluation Time Seen by Provider: 02/28/20 20:10 Medical Evaluation: Allergies Allergy/AdvReac Type Severity Reaction Status Date / Time No Known Allergies Allergy Verified 05/18/19 18:18 02/28/20 20:10 I have performed a brief in-person evaluation of this patient. CC: sore throat and subjective fevers x1 day PE: OP-WNL. Uvula midline. No cervical lymphadenopathy Orders: throat cx, Covid Patient will proceed to ED for further evaluation. Discharge Disposition - Diagnosis Pharyngitis - Referrals - Patient Instructions - Post Discharge Activity
[2020-02-28 20:25] VITALS: BP 105/71; PULSE 67; TEMP 97.2; BMI 33.3
[2020-02-28 20:51] LABS: THROAT:GRP A STREP ANTIGEN Negative (Negative)
--- NOTE | 2020-02-28 20:59 | PDOC ---
History of Present Illness - General Chief Complaint: Sore Throat Stated Complaint: SORE THROAT Time Seen by Provider: 02/28/20 20:10 - History of Present Illness Initial Comments: 02/28/20 20:57 44-year-old female no comorbidities presents for evaluation of sore throat and subjective fever at home x1 day Past History - Medical History Allergies/Adverse Reactions: Allergies Allergy/AdvReac Type Severity Reaction Status Date / Time No Known Allergies Allergy Verified 05/18/19 18:18 Home Medications: Ambulatory Orders Ascorbic Acid [Vitamin C] 1,000 mg PO DAILY 08/03/18 EPINEPHrine (EPI-PEN 0.3MG) [Epipen 0.3MG -] 0.3 mg IM ASDIR #2 pens 01/04/19 Anemia: No Asthma: No Cancer: No Cardiac Disorders: No CVA: No COPD: No CHF: No Dementia: No Diabetes: No GI Disorders: No Disorders: No HTN: No Hypercholesterolemia: No Liver Disease: No Seizures: No Thyroid Disease: No - Surgical History Abdominal Surgery: No Appendectomy: No Cardiac Surgery: No Cholecystectomy: No Lung Surgery: No Neurologic Surgery: No Orthopedic Surgery: No - Reproductive History Is Patient Now?: No - Immunization History Immunization Up to Date: Yes - Psycho-Social/Smoking History Smoking History: Never smoked Have you smoked in the past 12 months: No - Substance Abuse Hx (Audit-C & DAST Scrn) How often the patient has a drink containing alcohol: Monthly or less Score: In Men: 4 or > Positive; In Women: 3 or > Positive: 1 Screen Result (Pos requires Nsg. Audit-10AR): Negative Review of Systems - Review of Systems Constitutional: Yes: Fever HEENTM: Yes: Throat Pain *Physical Exam - Vital Signs Last Vital Signs Temp Pulse Resp BP Pulse Ox 97.2 F L 67 20 105/71 99 02/28/20 20:23 02/28/20 20:23 02/28/20 20:23 02/28/20 20:23 02/28/20 20:23 - Physical Exam General Appearance: Yes: Nourished, Appropriately Dressed. No: Apparent Distress HEENT: positive: Symmetrical. negative: Pharyngeal Erythema, Tonsillar Exudate, Tonsillar Erythema Neck: positive: Supple. 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 02/28/20 20:57 I have reviewed the pathophysiology with the patient. They are in agreement with the treatment plan all questions were answered to their satisfaction. Understanding for follow-up without fail was also conveyed to the patient. Again they are in agreement. Supportive care Discharge - Discharge Information Problems reviewed: Yes Clinical Impression/Diagnosis: Pharyngitis Condition: Stable Disposition: HOME - Admission No - Follow up/Referral Referrals: Rock Mcgowan MD [Primary Care Provider] - - Patient Discharge Instructions Additional Instructions: Tylenol and Motrin as directed for pain and fever. Return to the emergency room for worsening symptoms. Without fail follow-up with your primary care physician in 1 to 2 days for further evaluation and treatment options. No work until COVID test is resulted which should take about 3 to 4 days. - Post Discharge Activity Work/Back to School Note: Back to Work
== END 2020-02-28 21:04 | disposition home or self-care (01) ==
LOC: JER 20:07 → JERFT 20:07
DX: J02.9 Acute pharyngitis, unspecified (principal)
CPT/HCPCS: 87070; 87880; 99283-25; U0003

== ENCOUNTER 2020-09-04 21:55 | Emergency (ER) | payer OTHER ==
[2020-09-04 22:04] VITALS: BP 121/75; PULSE 74; TEMP 97.7; BMI 33.3
== END 2020-09-04 22:20 | disposition home or self-care (01) ==
LOC: JER 21:55
DX: R52 Pain, unspecified (principal)
CPT/HCPCS: 99281-25

== ENCOUNTER 2020-12-27 20:23 | Emergency (ER) | payer OTHER ==
[2020-12-27 21:01] VITALS: BP 125/76; PULSE 65; TEMP 98; BMI 33.3
== END 2020-12-28 00:41 | disposition home or self-care (01) ==
LOC: JER 20:23
DX: G50.1 Atypical facial pain (principal)
CPT/HCPCS: 99283-25